=== PATIENT | male | born 1960 | race Caucasian/White ===

== ENCOUNTER 2024-10-27 03:55 | Day surgery (SDC) | payer OTHER ==
[2024-10-25 13:41] VITALS: BMI 32.5
[2024-10-27] MEDS ORDERED: PROPOFOL 20 ML ONE (07:32)
[2024-10-27] MEDS ORDERED: MIDAZOLAM HCL 2 MG/2 ML SINGLE DOSE VIAL ONE (07:33)
[2024-10-27] MEDS: ceFAZolin SODIUM 1 GM VIAL IVPB ONE (07:42)
[2024-10-27] MEDS: GENTAMICIN SO4 80 MG/2 ML VIAL IVPB ONE (08:05)
[2024-10-27] MEDS ORDERED: GENTAMICIN SO4 80 MG/2 ML VIAL ONE (08:05)
[2024-10-27] MEDS ORDERED: FUROSEMIDE 40 MG/4 ML INJECTABLE VIAL ONE (08:16)
[2024-10-27] MEDS ORDERED: ONDANSETRON 4 MG/2 ML VIAL IVPUSH PRN (08:35)
[2024-10-27] MEDS ORDERED: oxyCODONE HCL 5 MG TABLET PO PRN (08:35)
[2024-10-27] MEDS ORDERED: LACTATED RINGERS SOLUTION 1,000 ML IV SCH (08:45)
[2024-10-27] MEDS ORDERED: ELECTROLYTE-148 SOLN 1,000 ML IV SCH (09:00)
[2024-10-27 12:33] VITALS: BP 114/76; PULSE 80; RESP 18
[2024-10-27 12:46] VITALS: TEMP 98
== END 2024-10-27 12:28 | disposition home or self-care (01) ==
LOC: JASU-SURG 03:55
PROVIDERS: ATTEND Urology
PROC: 0VT08ZZ Resection of Prostate, Via Natural or Artificial Opening Endoscopic (ICD-10-PCS; principal; 2024-10-27 07:30)
DX: N40.1 Benign prostatic hyperplasia with lower urinary tract symptoms (principal); R33.8 Other retention of urine
CPT/HCPCS: 88305-TC; 94760